=== PATIENT | male | born 1950 | race Caucasian/White ===

== ENCOUNTER 2016-11-03 10:13 | Emergency (ER) | payer OTHER ==
--- NOTE | 2016-11-03 10:12 | ED.REPORT ---
HPI-Chest Pain 40 and Over Date of Service Nov 03, 2016 ED Provider: Manpreet Young Patient is a 66 year old anticoagulated (Pradaxa) male with an extensive cardiac history who presents to the ED via EMS complaining of chest pain onset 0400 this morning. His pain had resolved initially after about 30-60 minutes but came back around 0900 this morning. Associated symptoms include L arm pain, diaphoresis, pleuritic pain, nausea, dizziness, and shortness of breath. He denies recent illness, fever, vomiting, or any other symptoms. He says that this pain is typical for the angina he has experienced previously He was given 3 nitro (2 at home, 1 en route), 324 mg aspirin, and 8 morphine. Nursing Notes Stated Complaint: CHEST PAIN Nursing Notes Reviewed: Yes Allergies: Coded Allergies: No Known Allergies (Unverified , 11/03/16) General Time Seen by MD: 10:12 Chief Complaint Chest pain Hx Obtained From: Patient, EMS Arrived By: Ambulance Sudden in Onset?: Yes Onset Occurred: 5 - 8 hours ago Similar Sx Previous: Yes Past Medical History Past Medical History [place] Reports: Coronary artery disease, Hyperlipidemia, Hypertension, Stroke, Denies: Congestive heart failure, Diabetes mellitus Reports: Atrial fibrillation Past Surgical History Cardiac stent x2 Reports: Pacemaker insertion Smoking History Unknown if Ever Smoker Social History Other Social History: Good social support, Ambulatory Status Independent Review of Systems Constitutional: Denies: Fever Respiratory: Reports: Pleuritic pain, Shortness of breath Cardiovascular: Reports: Chest pain GI: Reports: Nausea, Denies: Vomiting Musculoskeletal: Reports: Extremity pain (L arm ) Skin: Reports Diaphoresis Neurologic: Reports: Dizziness Complete sys rev & neg: except as marked. Physical Exam Initial Vital Signs Vital Signs (First) Date Time Temp Pulse Resp B/P Pulse Ox O2 Delivery O2 Flow Rate FiO2 11/03/16 10:23 36.8 89 22 200/95 98 Nasal Cannula 4 Initial VS: Reviewed Head / Eyes: Atraumatic, Normocephalic Skin: Warm, Dry Neurologic: Alert, Oriented, Nonfocal Psychiatric: Mood/affect normal, Behavior normal, Normal thought content General/Constitutional: Awake, Alert, Well developed Distress / Hydration: Positive: Distress moderate Respiratory / Chest: No respiratory distress Cardiovascular: Heart rate NL, Heart sounds NL, No murmurs Heart Rate / Rhythm: Positive: Irreg irregular rhythm Abdomen: Soft, Non-tender, No guarding Color / Condition: Positive: Diaphoresis present Interpretation & Diagnostics Lab Results Interpretation Result Diagram: 11/03/16 1024 11/03/16 1024 Test 11/03/16 10:24 White Blood Count 5.9th/mm3 (3.8-10.1) Red Blood Count 4.90mil/mm3 (4.40-5.80) Hemoglobin 15.8g/dL (13.8-17.2) Hematocrit 45.3% (41.0-50.0) Mean Corpuscular Volume 92.4fL (81-100) Mean Corpuscular Hemoglobin 32.2pg (27.0-35.0) Mean Corpuscular Hemoglobin Concent 34.9% (32.0-37.0) Red Cell Distribution Width 13.1% (12.3-15.4) Platelet Count 153bil/L (150-400) Neutrophils (%) (Auto) 65.8% (40-74) Lymphocytes (%) (Auto) 21.3% (14-46) Monocytes (%) (Auto) 9.1% (4-12) Eosinophils (%) (Auto) 2.4% (0-5) Basophils (%) (Auto) 1.2% (0-3) Sodium Level 133mEq/L (134-144) Potassium Level 4.9mEq/L (3.5-5.2) Chloride Level 96mEq/L (97-108) Carbon Dioxide Level 21mmol/L (18-29) Blood Urea Nitrogen 20mg/dL (8-27) Creatinine 1.23mg/dL (0.76-1.27) Estimat Glomerular Filtration Rate 62mL/min (>59) Glucose Level 107mg/dL (60-99) Calcium Level 9.1mg/dL (8.5-10.1) Magnesium Level 1.7mg/dL (1.6-2.6) Total Bilirubin 0.5mg/dL (0.0-1.2) Aspartate Amino Transf (AST/SGOT) 66U/L (0-50) Alanine Aminotransferase (ALT/SGPT) 75U/L (0-44) Alkaline Phosphatase 104U/L (25-160) Troponin T 0.010ug/L (0.0-0.011) Total Protein 7.0g/dL (6.4-8.4) Albumin 3.9g/dL (3.4-5.0) Digoxin Level 1.4nG/mL (0.9-2.0) ECG Interpretation ECG Interpretation: afib rate [address] wave changes Time: 10:21 Interpreted by: ED physician X-Ray Chest Interpretation Chest Xray Interpretation: no widened mediastinum View: Portable, 1 view Interpretation / Wet Read by: Wet read ED physician Re-Eval/Medical Decision Med Decision/Clinical Course Despite maximal medication intervention and multiple reassurances of noncardiac pain (normal EKG, normal troponin and normal echo) the patient persisted in having significant chest pain. Since our ICU was full seemed appropriate to transfer the patient to the facility where he gets the majority of his cardiac care, being [facility]. Time of Eval: 11:03 Patient Status: Condition improved Re-Evaluation/Progress Note: Patient reports his pain is now a 6/10. Time of Eval: 13:09 Re-Evaluation/Progress Note: Discussed plan to transfer patient due to need for admission and shortage of beds in our hospital. Patient understands and agrees with plan. All questions addressed at this time. Consultation #1: Referral / Consult Name: Khanh Bro MD Consulted With: Cardiology Call Returned at: 11:28 Prestidigitator: Will see patient Note: Saw patient. Suggests IV nitro Consultation #2: Consulted With: Hospitalist Call Returned at: 13:11 Prestidigitator: Agrees with eval, Agrees with plan, Accepts admit Note: Discussed patient's case. Dr. Ruiz accepted patient to [facility] in [place]. Counseled Regarding: Diagnosis, Lab results, Need for admission Discharge & Departure Primary Impression: Acute coronary syndrome Additional Impression: Chest pain Chest pain type: unspecified Qualified Code: R07.9 - Chest pain, unspecified Disposition: Transfer, Acute Care Facility Receiving Hospital: [facility] Referrals: OTHER,PHYSICIAN (PCP) (Family) Crit Care Except Billable Proc Time Spent: 30-74 minutes Services Performed: Patient management by me, Time spent at bedside, Reviewing test results, Reviewing imaging, Discussing patient care, Documentation in record, Time with fam/surrogate Scribe Attestation Portions of this note were transcribed by Ulices Cheney. I, Dr. Young personally performed the history, physical exam and medical decision-making; I reviewed and confirmed the accuracy of the information in the transcribed note. Signed by: Ulices Cheney 11/03/16, 1313 Manpreet Young MD Nov 03, 2016 10:12 ULICES CHENEY Nov 03, 2016 10:56
[2016-11-03 10:23] VITALS: BP 200/95; PULSE 89; RESP 22; O2SAT 98
[2016-11-03] MEDS ORDERED: Nitroglycerin 2% 1 Gm Ointment TOPICAL ONE (10:25)
[2016-11-03] MEDS ORDERED: Ondansetron 2 mg/mL 2 mL Inj IVPUSH ONE (10:25)
[2016-11-03] MEDS ORDERED: Heparin 25K Unit/500mL 0.45 NS 25,000 UNIT in IV Premix 1 EACH IV SCH (10:25)
[2016-11-03] MEDS ORDERED: Heparin 5,000 Unit/mL Inj IVPUSH PRN (10:25)
[2016-11-03] MEDS ORDERED: LORazepam 0.5 mg Tablet PO PRN (10:25)
[2016-11-03 10:27] LABS: BASOPHILS % (AUTO) 1.2 % (0-3); EOSINOPHILS % (AUTO) 2.4 % (0-5); MONOCYTES % (AUTO) 9.1 % (4-12); Mean Corpuscular Hemoglobin 32.2 pg (27.0-35.0); Mean Corpuscular Volume 92.4 fL (81-100); NEUTROPHILS % (AUTO) 65.8 % (40-74); Platelet Count 153 bil/L (150-400)
[2016-11-03] MEDS: MeTOProlol 1 mg/mL 5 mL Inj IVPUSH PRN ×3 (10:48→11:13)
[2016-11-03 10:49] VITALS: BP 138/83; PULSE 71; RESP 23; O2SAT 95
[2016-11-03 11:03] VITALS: BP 145/92; PULSE 62; RESP 24; O2SAT 96
[2016-11-03 11:14] VITALS: BP 129/74; PULSE 63; RESP 17; O2SAT 96
[2016-11-03 11:46] VITALS: BP 146/93; PULSE 67; RESP 18; O2SAT 97
[2016-11-03] MEDS ORDERED: Nitroglycerin 50 mg/250 mL D5W 50,000 MCG in IV Premix 1 EACH IV SCH (11:50)
--- NOTE | 2016-11-03 11:52 | DRSVH ---
PROCEDURE: X-RAY CHEST ONE VIEW, PORTABLE ([id number]) INDICATIONS: Chest pain TECHNIQUE: One view of the chest was acquired. COMPARISON: [facility], CR, XR CHEST 2VW, 09/27/2016, 8:13. FINDINGS: Surgical changes and devices: Pacemaker. Lungs and pleura: No pleural effusions or pneumothorax. Lungs are clear. Mediastinum: Mediastinal contours appear normal. Heart size is normal. Bones and chest wall: No suspicious bony lesions. Overlying soft tissues appear unremarkable. IMPRESSION: No acute pulmonary process. Dictated by: Kierra Walker M.D. on 11/03/2016 at 10:31 Approved by: Kierra Walker M.D. on 11/03/2016 at 10:31
[2016-11-03 13:24] LABS: Magnesium 1.7 mg/dL (1.6-2.6); TROPONIN T 0.01 ug/L (0.0-0.011)
--- NOTE | 2016-11-03 13:43 | DRSVH ---
[facility] [address] [place] [address] Echocardiogram Report Name: SIA SOTO Zeb e: 11/03/2016 Height: 76 in Hospital Exam Location: [facility] Weight: 260 lb Gender: Male BSA: 2.5 m2 : 1950 Age: 66 yrs BP: 146/93 mmHg Reason For Study: ACS Ordering Physician: Khanh Bro Performed By: Maykel Mueller Referring Physician: Cali SOTO Interpretation Summary There is mild-moderate concentric left ventricular hypertrophy. The ejection fraction is estimated to be 70-75%. The left ventricle is mildly hyperdynamic. There are no focal wall motion abnormalities. There is a pacemaker lead in the right ventricle. There is discrete nodular thickening of the non- coronary cusp. There is mild aortic stenosis. Right ventricular systolic pressure is estimated to be 16 mmHg plus the clinically estimated CVP which cannot be estimated on this exam. There is no pericardial effusion. No other echocardiographic abnormalities seen. Procedure: A two-dimensional transthoracic echocardiogram with color flow and Doppler was performed. The study quality was technically adequate. There is no prior echocardiogram noted for this patient. The subcostal views were difficult to obtain and are suboptimal in quality. The patient has a paced rhythm. Left Ventricle: The left ventricle is normal in size. Left ventricular wall thickness is mildly increased. There is mild-moderate concentric left ventricular hypertrophy. The ejection fraction is estimated to be 70-75%. The left ventricle is mildly hyperdynamic. There are no focal wall motion abnormalities. Diastolic function could not be accurately assessed due to atrial fibrillation. Right Ventricle: The right ventricle is mildly dilated. There is a pacemaker lead in the right ventricle. The right ventricular systolic function is normal. Atria: Both atria are moderately dilated. The interatrial septum is intact with no evidence for an atrial septal defect. Mitral Valve: There is mild mitral annular calcification. The mitral valve leaflets are slightly calcified. There is trace mitral regurgitation. Aortic Valve: The aortic valve is trileaflet. There is discrete nodular thickening of the non- coronary cusp. Leaflet mobility is mild to moderately reduced. There is mild aortic stenosis. No aortic regurgitation is present. Tricuspid Valve: The tricuspid valve is normal in structure and function. There is trace tricuspid regurgitation. Right ventricular systolic pressure is estimated to be 16 mmHg plus the clinically estimated CVP which cannot be estimated on this exam. Pulmonic Valve: The pulmonic valve is normal in structure and function. There is trace pulmonic regurgitation. Great Vessels: The aortic root is normal size. The ascending aorta is mild- moderately enlarged. The aortic arch is moderately enlarged. The pulmonary artery is normal size. The inferior vena cava was not visualized. Pericardium/ Pleura There is no pericardial effusion. There is no pleural effusion. Incidental finding of a dense liver is noted. MMode/2D Measurements & Calculations LVIDd: 4.6 cm LA dimension: 4.4 cm RA long axis LVOT diam: 2.5 cm LVIDs: 2.9 cm AoV Opening FS: 37.0 % LA A2 area: 30.9 cm RA area EPSS: 0.21 cm LA A4 area: 36.3 cm Ao root diam IVSd: 1.2 cm LA length (vol) : 22.3 cm LVPWd: 1.1 cm RA vol Aortic Jxn: 3.2 cm LA vol: 122.6 ml : 63.4 ml asc Aorta Diam LA vol index RA : 25.6 mm2 Ao Arch Diam (Prox : 49.5 ml/m2 Trans): 4.1 cm LV carrasquillo. diameter/BSA LV sys. diameter/BSA RVD1 (basal) RVD2 (mid): 4.2 cm (cm/m^2): 1.8 (cm/m^2): 1.2 Doppler Measurements & Calculations Ao V2 max MV E max jeffery MV E/A: 62.1 TR max jeffery : 175.5 cm/sec : 92.7 cm/sec Med Peak E' Jeffery : 197.4 cm/sec Ao max P.3 mmHg MV A max jeffery TR max PG Ao mean P.0 mmHg : 1.5 cm/sec E/E' med: 13.2 : 15.6 mmHg LVOT Max Jeffery PA V2 max : 97.9 cm/sec : 84.6 cm/sec PA mean PG OSWALDO(I,D): 3.0 cm sev ratio: 0.62 PA Accel Time : 0.06 sec MV dec time: 0.20 sec Ao V2 mean LV V1 max PG PA V2 mean : 127.1 cm/sec : 55.9 cm/sec Ao V2 VTI: 32.4 cmLV V1 VTI: 20.0 cmPA pr(Accel) : 54.0 mmHg OSWALDO(V,D): 2.7 cm2 OSWALDO indexed to BSA (cm^2/m^2): 1.2 Reading Physician:01:42 PM
== END 2016-11-03 14:33 | disposition short-term general hospital (02) ==
LOC: SED 10:13
DX: I24.9 Acute ischemic heart disease, unspecified (principal); I25.2 Old myocardial infarction; I25.10 Atherosclerotic heart disease of native coronary artery without angina pectoris; E78.5 Hyperlipidemia, unspecified; I10 Essential (primary) hypertension; I48.91 Unspecified atrial fibrillation; Z86.73 Personal history of transient ischemic attack (TIA), and cerebral infarction without residual deficits; Z95.0 Presence of cardiac pacemaker; Z95.818 Presence of other cardiac implants and grafts; Z79.01 Long term (current) use of anticoagulants; Z59.0 Homelessness
CPT/HCPCS: 36415; 71010; 80053; 80162; 83735; 84484; 85025; 93005; 96374; 96375; 99291; C8929; J1644; J2270; J2405